=== PATIENT | female | born 1975 | race Caucasian/White ===

== ENCOUNTER → 2017-07-13 | Outpatient (CLI) | payer BC ==
[2017-07-13 13:29] LABS: BASO % 0.6 %; BASO ABS # 0.04 K/uL (0-0.2); EOS % 1.4 %; EOS ABS # 0.09 K/uL (0-0.5); HEMATOCRIT 42.2 % (37-47); HEMOGLOBIN 14.6 g/dL (12.0-16.0); IG# 0.01 K/uL (0.00-0.02); LYMPH % 43.7 %; LYMPH ABS # 2.89 K/uL (1.2-3.4); MEAN CELL VOLUME 84.9 fL (80-100); MEAN CORPUSCULAR HEMOGLOBIN 29.4 pg (25-34); MEAN CORPUSCULAR HGB CONC 34.6 g/dl (32-36); MEAN PLATELET VOLUME 10.7 fL (7.4-10.4); MONO % 6.9 %; MONO ABS # 0.46 K/uL (0.11-0.59); NEUT % 47.2 %; NEUT ABS # 3.13 K/uL (1.4-6.5); PLATELET COUNT 218 K/uL (130-400); RED CELL DISTRIBUTION WIDTH CV 13.1 % (11.5-14.5); WHITE BLOOD COUNT 6.62 K/uL (4.8-10.8)
[2017-07-13 13:55] LABS: ALBUMIN 4.6 gm/dl (3.4-5.0); ALT/SGPT 54 U/L (12-78); BLOOD UREA NITROGEN 17 mg/dl (7-18); CALCIUM 9.6 mg/dl (8.5-10.1); CARBON DIOXIDE 31 mmol/L (21-32); CHOLESTEROL 156 mg/dl (0-200); CREATININE 0.78 mg/dl (0.60-1.20); GLUCOSE 99 mg/dl (70-99); POTASSIUM 3.5 mmol/L (3.5-5.1); SODIUM 136 mmol/L (136-145)
[2017-07-13 14:01] LABS: ALKALINE PHOSPHATASE 55 U/L (45-117); AST/SGOT 27 U/L (15-37); LDL CHOLESTEROL CALCULATED 87 mg/dl; TOTAL PROTEIN 7.9 gm/dl (6.4-8.2)
== END | disposition home or self-care (01) ==
LOC: C.LABBC 09:51
PROVIDERS: ATTEND Internal Medicine
DX: Z00.00 Encounter for general adult medical examination without abnormal findings (principal); I10 Essential (primary) hypertension; G47.00 Insomnia, unspecified; E04.1 Nontoxic single thyroid nodule

== ENCOUNTER → 2017-07-18 | Outpatient (CLI) | payer BC ==
--- NOTE | 2017-07-18 12:46 | DIAGNOSTIC IMAGING REPORT ---
SOFT TISS HEAD/NECK-THYROID CLINICAL HISTORY: 41 years-old Female presenting with E04.1 Left thyroid [id number]. TECHNIQUE: Real-time grayscale and color Doppler ultrasound imaging of the thyroid and base of the neck was performed. COMPARISON: None. FINDINGS: Right lobe: Normal echogenicity and echotexture. The right lobe of the thyroid measures 3.6 x 1.3 x 1.4 cm. No nodules. No parenchymal hyperemia. Left lobe: Normal echogenicity and echotexture. The left lobe of the thyroid measures 3.7 x 1.2 x 1.1 cm. Interpolar to upper pole nodule measuring 0.4 x 0.3 x 0.4 cm, which is hypoechoic, well-defined and wider than tall (intermediate suspicion pattern). No parenchymal hyperemia. Isthmus: The isthmus measures 7 mm in thickness. 2.0 x 0.9 x 2.1 cm well-defined hypoechoic vascular nodule, wider than tall, expanding the isthmus (intermediate suspicion pattern). IMPRESSION: Dominant isthmic nodule. Fine-needle aspiration is recommended per the [place] [employer] criteria. The report will be called/faxed according to standard departmental protocol. Electronically signed by: Tc Garcia M.D. 07/18/2017 12:45 PM Dictated Date/Time: 07/18/2017 12:43 PM
== END | disposition home or self-care (01) ==
LOC: C.ULTR 11:58
PROVIDERS: ATTEND Internal Medicine
DX: E04.1 Nontoxic single thyroid nodule (principal)

== ENCOUNTER → 2017-07-20 | Outpatient (CLI) | payer BC ==
--- NOTE | 2017-07-20 10:39 | Discharge Instructions ---
Discharge Instructions Procedure Procedure Date: Jul 20, 2017. Reason for visit: Left Thyroid Nodule. Discharge Discharge Date: Jul 20, 2017. Discharge Diagnosis: Thyroid nodule Instructions Activity Recommendations: No limitations Return to School/Work: no limitations Recommended Home Diet: No Limitations, Resume Previous Diet Provider Instructions: ultrasound guided fine-needle aspiration of an isthmic nodule is performed with 4 passes utilizing 25-gauge needles. There were no immediate complications. ACTIVITY RECOMMENDATIONS: * Rest today. * Resume regular activity in one day. MEDICATIONS: * May take Tylenol or Ibuprofen as needed for pain. DIET: * Resume previous diet. SPECIAL CARE INSTRUCTIONS: Call your doctor if: * Temperature above 101 degrees F. * Pain not relieved by pain medicine ordered. * Increased drainage or redness from incision. * Notify your doctor with any questions or concerns. Call your doctor or go to the nearest Emergency Department if you experience: * Increased chest pain or shortness of breath. FOLLOW UP VISIT: Follow-up with Referring Physician as scheduled. Allergies Coded Allergies: No Known Allergies (Verified Allergy, Unknown, 02/01/05) Gilberto Cary Recommendations: Call your doctor if: * Temperature above 101 degrees * Pain not relieved by pain medicine ordered * There is increased drainage or redness from any incision * You have any unanswered questions or concerns. Your Doctors Instructions noted above were prepared by provider Richard Woodall. Patient Signature Section: Patient Instructions Signature Page Jessica Yarbrough Patient (or Guardian) Signature/Date: I have read and understand the instructions given to me by my caregivers. Caregiver/RN/Doctor Signature/Date: The above-named patient and/or guardian has received patient instructions on this date. + Original Patient Signature Page (only) stays with chart. Please make copy for patient.
--- NOTE | 2017-07-20 10:55 | DIAGNOSTIC IMAGING REPORT ---
ULTRASOUND-GUIDED FINE-NEEDLE ASPIRATION THYROID CLINICAL HISTORY: Left thyroid isthmic nodule. COMPARISON STUDY: Thyroid ultrasound dated 07/18/2017. PROCEDURE: The risks, benefits, and alternatives to the procedure were discussed with the patient. Written informed consent was obtained. The patient was placed supine in ultrasound, and the 2.4 x 0.7 x 2.0 cm hypoechoic nodule in the left thyroid isthmus was localized by ultrasound and selected for fine needle aspiration. The Central neck was prepped and draped in the usual sterile fashion. The nodule was aspirated under ultrasound guidance with 4 passes utilizing 25-gauge needles. Specimens were reviewed by the pathologist in real-time. The patient tolerated the procedure well and left the department in satisfactory condition. IMPRESSION: Completed fine-needle aspiration of a left thyroid isthmic nodule as above. Electronically signed by: Richard Woodall M.D. 07/20/2017 10:54 AM Dictated Date/Time: 07/20/2017 10:52 AM
== END | disposition home or self-care (01) ==
LOC: C.ULTR 09:34
PROVIDERS: ATTEND Physician Assistant Medical
DX: E04.1 Nontoxic single thyroid nodule (principal)